=== PATIENT | male | born 1960 | race Caucasian/White ===

== ENCOUNTER 2018-11-18 09:02 | Emergency (ER) | payer OTHER, SELFPAY ==
[2018-11-18] VITALS (7 sets, daily range): BP systolic 125–142; BP diastolic 82–87; PULSE 50–65; RESP 13–18; TEMP 36.6; O2SAT 96–100; BMI 23.6
--- NOTE | 2018-11-18 09:05 | DI.RAD.S_ITS ---
PROCEDURE: XR CHEST 1V INDICATIONS: chest pain TECHNIQUE: One view of the chest was acquired. COMPARISON: None. FINDINGS: Surgical changes and devices: None. Lungs and pleura: Lungs are clear. No pleural effusions or pneumothorax. Mediastinum: Mediastinal contours appear normal. Heart size is normal. Bones and chest wall: No suspicious bony lesions. Overlying soft tissues appear unremarkable. IMPRESSION: No evidence acute pulmonary process. Dictated by: Earnest Flores M.D. on 11/18/2018 at 10:03 Approved by: Earnest Flores M.D. on 11/18/2018 at 10:03
[2018-11-18 09:14] LABS: Add Manual Diff / Slide Review NO; Basophils Absolute Auto 0 /uL (0-100); Basophils Percent Auto 0.7 % (0-2); Eosinophils Absolute Auto 100 /uL (0-450); Hemoglobin 15.8 g/dL (13.5-17.5); Lymphocytes Absolute Auto 1800 /uL (1100-4500); Lymphocytes Percent Auto 26.4 % (25-40); Mean Corpuscular HGB Conc 34.4 % (30-36); Mean Corpuscular Hemoglobin 31.9 PG (26-34); Mean Corpuscular Volume 92.5 fL (80-100); Monocytes Absolute Auto 500 /uL (0-900); Monocytes Percent Auto 7.3 % (3-14); Neutrophils Absolute Auto 4200 /uL (1500-7000); Neutrophils Percent Auto 63.6 % (50-75); Platelet Count 346 X10^3/uL (150-400); Red Blood Cell Count 4.97 X10^6/uL (4.5-5.9); White Blood Cell Count 6.6 X10^3/uL (4.5-11.0)
[2018-11-18 09:20] LABS: INR 0.9 (0.9-1.3); Prothrombin Time 10.1 SECONDS (10.1-12.7)
[2018-11-18 09:23] LABS: PTT Partial Thromboplastin Tim 38 SECONDS (26.4-36.2)
[2018-11-18 09:26] LABS: Alanine Aminotransferase 12 IU/L (21-72); Albumin 4.1 g/dL (3.5-5.0); Albumin Globulin Ratio 1.4 (1.0-2.8); Alkaline Phosphatase 74 U/L (38-126); Aspartate Aminotransferase 28 IU/L (17-59); Bilirubin Total 0.5 mg/dL (0.2-1.3); Blood Urea Nitrogen 15 mg/dL (9-20); Calcium 9.3 mg/dL (8.4-10.2); Carbon Dioxide 31 mmol/L (22-32); Chloride 103 mmol/L (98-107); Creatine Kinase 133 U/L (55-170); Estimated Glomerular Filt Rate > 60.0 mL/min (>60); Globulin 2.9 g/dL (1.7-4.1); Glucose 101 mg/dL (70-100); HEMOLYSIS 29 (0-50); Lipase 82 U/L (23-300); Potassium 4.4 mmol/L (3.4-5.1); Sodium 139 mmol/L (137-145)
[2018-11-18 09:36] LABS: Troponin I < 0.012 ng/mL (0.01-0.034)
[2018-11-18 09:41] LABS: CKMB % Relative Index 1.3 % (1.5-5.0); Creatine Kinase MB 1.73 ng/mL (<2.37)
--- NOTE | 2018-11-18 09:42 | ED.CHESTPAIN ---
HPI - Chest Pain General Chief Complaint: Chest Pain Stated Complaint: Chest Pain Time Seen by Provider: 11/18/18 09:13 Source: patient Mode of arrival: ambulatory Limitations: no limitations History of Present Illness HPI narrative: Patient comes to the emergency department complaining of left-sided chest pain that he 1st noticed this morning when he woke up. Patient states that he felt it in his anterior left chest initially, and it seemed to wax and wane a little. He states that when he got to work, however, he was walking around performing some of his duties at the [employer], and he started to notice an increase in the pain a bit. He states he sat down to do some paperwork, and then began to have pain in his left back and some diaphoresis. Patient denies any nausea or shortness of breath. Patient states he felt an increase in the left-sided chest pain, and asked the medical radiation dosimetrist at the [employer] to come and take his blood pressure. The medical radiation dosimetrist called EMS, who arrived after the patient had taken 2 of his nitroglycerin tablets 5 minutes apart. This had not really change the pain, so they gave him a dose of morphine, which completely took the pain away. Patient states he has a history of an OK several years ago, and thinks that he has been having either MIs or angina leading up to this. He was admitted at [facility], and from patient's report, it seems a diagnostic catheterization was done. 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 He states that he has not seen Cardiology since, and that he has continued to smoke cigarettes. He states he has also been under lot of stress lately with his ill father admitted in [place], and he has not been taking his aspirin. Patient states he has gotten anginal-type pain from time to time over the years since his OK, but that this always resolves easily with nitroglycerin. He states that his nitro is and he wonders if that is why did not seem to work today. Patient states he is completely asymptomatic now after the morphine. No other complaints at this time. No leg swelling or pain. No history of DVT. No cough or respiratory symptoms. No fever. No abdominal pain or other GI symptoms. Patient denies family history of OK, though his father is admitted for dysrhythmia at . Patient is a smoker. No history of hypertension, and patient states that he does take his blood pressure regularly and it is usually 120s to 130s over 70s to 80s. No history of diabetes. Patient is not known to have hyperlipidemia. He does not see a primary doctor regularly. Related Data Home Medications Medication Instructions Recorded Confirmed amoxicillin 500 mg PO TID 11/18/18 11/18/18 Allergies Allergy/AdvReac Type Severity Reaction Status Date / Time ibuprofen Allergy Severe Nausea Verified 11/18/18 12:09 Review of Systems Constitutional Denies chills, Denies fever(s), Denies lethargy and Denies weakness Eyes Denies change in vision, Denies eye discharge, Denies irritation and Denies loss of vision ENT Ears, Nose, Mouth, and Throat: Denies change in voice, Denies neck pain and Denies sore throat Cardiovascular Reports chest pain, Denies irregular heart rhythm, Denies lightheadedness, Denies palpitations, Denies dyspnea, Denies dyspnea on exertion and Denies orthopnea Respiratory Denies cough, Denies dyspnea, Denies dyspnea on exertion and Denies wheezing Gastrointestinal Gastrointestinal: Denies abdominal pain, Denies change in bowel habits, Denies diarrhea, Denies nausea and Denies vomiting Genitourinary Denies hematuria, Denies flank pain, Denies urinary incontinence and Denies urinary urgency Musculoskeletal Denies neck pain Integumentary/Breasts Denies pruritus, Denies erythema, Denies rash and Denies wounds Comments: Diaphoresis Neurologic Denies confusion, Denies loss of vision and Denies weakness Psychiatric Denies anxiety, Denies confusion, Denies depression, Denies homicidal ideation and Denies suicidal ideation Endocrine Denies palpitations Hematologic/Lymphatic Denies easy bruising Allergic/Immunologic Denies wheezing [facility] Medical History Coronary artery disease (Acute) Surgical History H/O cardiac catheterization (Acute) Social History Smoking Status: Current every day smoker Exam Initial Vital Signs Initial Vital Signs: Vital Signs Temperature 97.8 F 11/18/18 09:11 Pulse Rate 65 11/18/18 09:11 Respiratory Rate 13 11/18/18 09:11 Blood Pressure 142/87 H 11/18/18 09:11 Pulse Oximetry 96 11/18/18 09:11 Const General: cooperative and well developed Nutritional Appearance: well nourished Orientation: alert, awake, oriented x3 and not confused [facility] Head: normocephalic and atraumatic Ears: external ears normal Nose: external nose normal and No nasal discharge Face and sinus: face symmetric and No dry mucous membranes Mouth: oral mucosae normal and moist mucous membranes Teeth and gingiva: dentition normal Eyes General: appearance normal, both eyes and all related structures Eyelids: eyelids normal Conjunctivae: conjunctivae normal Sclera: sclerae normal Pupils: PERRL EOM: EOM intact bilaterally Neck Neck: normal visual inspection, trachea midline, No lymphadenopathy, No midline deformity and No JVD Lymphatic: No lymphedema Chest Chest: normal inspection of the chest Resp Effort & Inspection: normal respiratory effort, able to speak in complete sentences, no respiratory distress and no use of accessory muscles Auscultation: clear to auscultation bilaterally, no rales, no rhonchi and no wheezes Cardio Rate: regular rate Rhythm: regular rhythm Heart Sounds: no click, no gallops, no murmurs and no rubs Pulses: normal peripheral pulses GI Inspection: non-distended Palpation: soft, no hepatosplenomegaly, No guarding, No pulsatile mass and No tender Auscultation: normal bowel sounds Back/Spine/Pelvis Back: No CVA tenderness Cervical Spine: cervical ROM normal and No pain with cervical ROM Thoracic/Lumbar Spine: thoracic and lumbar spine normal to inspection Skin General: no rashes or lesions noted, No jaundice and No petechiae Neuro General: alert, oriented x3, gait normal and no focal motor deficits Speech: speech normal Extrem General: full ROM, no clubbing, cyanosis or edema, no pedal edema and no calf tenderness Psych Appearance: well kempt Mental Status: mental status grossly normal Attitude: cooperative Thought Content: normal and suicidality Judgment: judgment good Course Course Narrative: Patient was evaluated by myself in the emergency department upon a arrival. He was found to be well appearing and asymptomatic at the time of my evaluation. However, he did have a number of risk factors for OK, including coronary artery disease, smoking, age, and gender. He was worked up with labs, including cardiac enzymes, and these are found to be negative. I did speak with Dr. Franklin of Cardiology at [facility], and he did agree to accept the patient transfer. As no bed was immediately available, Dr. Franklin did arrange for the patient to come straight in for cardiac catheterization, after which a bed would be found for the patient. Patient was informed of the plan for transfer and cardiology care and was agreeable to the plan. He was beginning to have a mild recurrence of his chest being, and so and into nitroglycerin paste was applied to his chest wall. Orders Ordered: Discontinued Medications Nitroglycerin (Nitro-Dur) 0.4 mg TOP 0700 COLTEN Nitroglycerin (Nitrostat) 0.4 mg SL NOW ONE Stop: 11/18/18 13:48 Last Admin: 11/18/18 13:56 Dose: 0.4 mg Nitroglycerin (Nitro-Bid) 1 inch TOP NOW ONE Stop: 11/18/18 13:59 Last Admin: 11/18/18 13:59 Dose: 1 inch Vital Signs - 8 hr 11/18/18 09:11 Temperature 97.8 F Pulse Rate 65 Respiratory Rate 13 Blood Pressure 142/87 H Pulse Oximetry 96 MDM - Chest Pain Medical Records Data Attestation: I reviewed the patient's medical records. Lab Data Attestation: I reviewed the patient's lab results. Result diagrams: 11/18/18 09:11 11/18/18 09:11 Lab Results 11/18/18 11/18/18 11/18/18 Range/Units 09:11 09:11 09:11 WBC 6.6 (4.5-11.0) X10^3/uL RBC 4.97 (4.5-5.9) X10^6/uL Hgb 15.8 (13.5-17.5) g/dL Hct 46.0 (41-53) % MCV 92.5 (80-100) fL MCH 31.9 (26-34) PG MCHC 34.4 (30-36) % RDW 14.0 (11.6-14.8) % Plt Count 346 (150-400) X10^3/uL Neut % (Auto) 63.6 (50-75) % Lymph % (Auto) 26.4 (25-40) % [place] % (Auto) 7.3 (3-14) % Eos % (Auto) 2.0 (2-4) % Baso % (Auto) 0.7 (0-2) % Neut # (Auto) 4200 (5199-2666) /uL Lymph # (Auto) 1800 (1470-9461) /uL [place] # (Auto) 500 (0-900) /uL Eos # (Auto) 100 (0-450) /uL Baso # (Auto) 0 (0-100) /uL PT 10.1 (10.1-12.7) SECONDS INR 0.9 (0.9-1.3) APTT 38 H (26.4-36.2) SECONDS Sodium 139 (137-145) mmol/L Potassium 4.4 (3.4-5.1) mmol/L Chloride 103 (98-107) mmol/L Carbon Dioxide 31 (22-32) mmol/L BUN 15 (9-20) mg/dL Creatinine 1.00 (0.66-1.25) mg/dL Estimated GFR > 60.0 (>60) mL/min BUN/Creatinine Ratio 15.0 (6-22) Glucose 101 H (70-100) mg/dL Calcium 9.3 (8.4-10.2) mg/dL Total Bilirubin 0.5 (0.2-1.3) mg/dL AST 28 (17-59) IU/L ALT 12 L (21-72) IU/L Alkaline Phosphatase 74 (38-126) U/L Total Creatine Kinase 133 (55-170) U/L CK-MB (CK-2) 1.73 (<2.37) ng/mL CK-MB (CK-2) Rel Index 1.3 L (1.5-5.0) % Troponin I < 0.012 (0.01-0.034) ng/mL Total Protein 7.0 (6.3-8.2) g/dL Albumin 4.1 (3.5-5.0) g/dL Globulin 2.9 (1.7-4.1) g/dL Albumin/Globulin Ratio 1.4 (1.0-2.8) Lipase 82 (23-300) U/L 11/18/18 Range/Units 12:00 WBC (4.5-11.0) X10^3/uL RBC (4.5-5.9) X10^6/uL Hgb (13.5-17.5) g/dL Hct (41-53) % MCV (80-100) fL MCH (26-34) PG MCHC (30-36) % RDW (11.6-14.8) % Plt Count (150-400) X10^3/uL Neut % (Auto) (50-75) % Lymph % (Auto) (25-40) % [place] % (Auto) (3-14) % Eos % (Auto) (2-4) % Baso % (Auto) (0-2) % Neut # (Auto) (0249-5204) /uL Lymph # (Auto) (8629-1653) /uL [place] # (Auto) (0-900) /uL Eos # (Auto) (0-450) /uL Baso # (Auto) (0-100) /uL PT (10.1-12.7) SECONDS INR (0.9-1.3) APTT (26.4-36.2) SECONDS Sodium (137-145) mmol/L Potassium (3.4-5.1) mmol/L Chloride (98-107) mmol/L Carbon Dioxide (22-32) mmol/L BUN (9-20) mg/dL Creatinine (0.66-1.25) mg/dL Estimated GFR (>60) mL/min BUN/Creatinine Ratio (6-22) Glucose (70-100) mg/dL Calcium (8.4-10.2) mg/dL Total Bilirubin (0.2-1.3) mg/dL AST (17-59) IU/L ALT (21-72) IU/L Alkaline Phosphatase (38-126) U/L Total Creatine Kinase (55-170) U/L CK-MB (CK-2) (<2.37) ng/mL CK-MB (CK-2) Rel Index (1.5-5.0) % Troponin I < 0.012 (0.01-0.034) ng/mL Total Protein (6.3-8.2) g/dL Albumin (3.5-5.0) g/dL Globulin (1.7-4.1) g/dL Albumin/Globulin Ratio (1.0-2.8) Lipase (23-300) U/L Imaging Data Chest x-ray: Radiologist's impression: PROCEDURE: XR CHEST 1V INDICATIONS: chest pain TECHNIQUE: One view of the chest was acquired. COMPARISON: None. FINDINGS: Surgical changes and devices: None. Lungs and pleura: Lungs are clear. No pleural effusions or pneumothorax. Mediastinum: Mediastinal contours appear normal. Heart size is normal. Bones and chest wall: No suspicious bony lesions. Overlying soft tissues appear unremarkable. IMPRESSION: No evidence acute pulmonary process. Dictated by: Earnest Flores M.D. on 11/18/2018 at 10:03 Approved by: Earnest Flores M.D. on 11/18/2018 at 10:03 ECG Data Attestation: I personally reviewed and interpreted this ECG as follows: (See below) Discharge Plan Departure Patient Disposition: [facility] Clinical Impression: Coronary artery disease Qualifiers: Coronary Disease-Associated Artery/Lesion type: [place]con artery [place] vs. transplanted heart: rincon heart Associated angina: with unspecified angina Qualified Code(s): I25.119 - Atherosclerotic heart disease of rincon coronary artery with unspecified angina pectoris Chest pain Qualifiers: Chest pain type: precordial pain Qualified Code(s): R07.2 - Precordial pain Discharge Date/Time: 11/18/18 14:34 Interventions: ED Discharge Assessment Last Done: 11/18/18 14:34 Prescriptions: No Action amoxicillin 500 mg capsule 500 mg PO TID RF: 0
--- NOTE | 2018-11-18 09:50 | ED_ITS ---
HPI - Chest Pain General Chief Complaint: Chest Pain Stated Complaint: Chest Pain Time Seen by Provider: 11/18/18 09:13 Source: patient Mode of arrival: ambulatory Limitations: no limitations History of Present Illness HPI narrative: Patient comes to the emergency department complaining of left- sided chest pain that he 1st noticed this morning when he woke up. Patient states that he felt it in his anterior left chest initially, and it seemed to wax and wane a little. He states that when he got to work, however, he was walking around performing some of his duties at the [employer], and he started to notice an increase in the pain a bit. He states he sat down to do some paperwork, and then began to have pain in his left back and some diaphoresis. Patient denies any nausea or shortness of breath. Patient states he felt an increase in the left-sided chest pain, and asked the medical engineer at the [employer] to come and take his blood pressure. The medical engineer called EMS, who arrived after the patient had taken 2 of his nitroglycerin tablets 5 minutes apart. This had not really change the pain, so they gave him a dose of morphine, which completely took the pain away. Patient states he has a history of an SD several years ago, and thinks that he has been having either MIs or angina leading up to this. He was admitted at [facility], and from patient's report, it seems a diagnostic catheterization was done. 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 He states that he has not seen Cardiology since, and that he has continued to smoke cigarettes. He states he has also been under lot of stress lately with his ill father admitted in [place], and he has not been taking his aspirin. Patient states he has gotten anginal-type pain from time to time over the years since his SD, but that this always resolves easily with nitroglycerin. He states that his nitro is and he wonders if that is why did not seem to work today. Patient states he is completely asymptomatic now after the morphine. No other compl aints at this time. No leg swelling or pain. No history of DVT. No cough or respiratory symptoms. No fever. No abdominal pain or other GI symptoms. Patient denies family history of SD, though his father is admitted for dysrhythmia at . Patient is a smoker. No history of hypertension, and p noaz states that he does take his blood pressure regularly and it is usually 120s to 130s over 70s to 80s. No history of diabetes. Patient is not known to have hyperlipidemia. He does not see a primary doctor regularly. Related Data Home Medications Medication Instructions Recorded Confirmed amoxicillin 500 mg PO TID 11/18/18 11/18/18 Allergies Allergy/AdvReac Type Severity Reaction Status Date / Time ibuprofen Allergy Severe Nausea Verified 11/18/18 12:09 Review of Systems Constitutional Denies chills, Denies fever(s), Denies lethargy and Denies weakness Eyes Denies change in vision, Denies eye discharge, Denies irritation and Denies loss of vision ENT Ears, Nose, Mouth, and Throat: Denies change in voice, Denies neck pain and Denies sore throat Cardiovascular Reports chest pain, Denies irregular heart rhythm, Denies lightheadedness, Denies palpitations, Denies dyspnea, Denies dyspnea on exertion and Denies orthopnea Respiratory Denies cough, Denies dyspnea, Denies dyspnea on exertion and Denies wheezing Gastrointestinal Gastrointestinal: Denies abdominal pain, Denies change in bowel habits, Denies diarrhea, Denies nausea and Denies vomiting Genitourinary Denies hematuria, Denies flank pain, Denies urinary incontinence and Denies urinary urgency Musculoskeletal Denies neck pain Integumentary/Breasts Denies pruritus, Denies erythema, Denies rash and Denies wounds Comments: Diaphoresis Neurologic Denies confusion, Denies loss of vision and Denies weakness Psychiatric Denies anxiety, Denies confusion, Denies depression, Denies homicidal ideation and Denies suicidal ideation Endocrine Denies palpitations Hematologic/Lymphatic Denies easy bruising Allergic/Immunologic Denies wheezing [facility] Medical History Coronary artery disease (Acute) Surgical History H/O cardiac catheterization (Acute) Social History Smoking Status: Current every day smoker Exam Initial Vital Signs Initial Vital Signs: Vital Signs Temperature 97.8 F 11/18/18 09:11 Pulse Rate 65 11/18/18 09:11 Respiratory Rate 13 11/18/18 09:11 Blood Pressure 142/87 H 11/18/18 09:11 Pulse Oximetry 96 11/18/18 09:11 Const General: cooperative and well developed Nutritional Appearance: well nourished Orientation: alert, awake, oriented x3 and not confused [facility] Head: normocephalic and atraumatic Ears: external ears normal Nose: external nose normal and No nasal discharge Face and sinus: face symmetric and No dry mucous membranes Mouth: oral mucosae normal and moist mucous membranes Teeth and gingiva: dentition normal Eyes General: appearance normal, both eyes and all related structures Eyelids: eyelids normal Conjunctivae: conjunctivae normal Sclera: sclerae normal Pupils: PERRL EOM: EOM intact bilaterally Neck Neck: normal visual inspection, trachea midline, No lymphadenopathy, No midline deformity and No JVD Lymphatic: No lymphedema Chest Chest: normal inspection of the chest Resp Effort & Inspection: normal respiratory effort, able to speak in complete sentences, no respiratory distress and no use of accessory muscles Auscultation: clear to auscultation bilaterally, no rales, no rhonchi and no wheezes Cardio Rate: regular rate Rhythm: regular rhythm Heart Sounds: no click, no gallops, no murmurs and no rubs Pulses: normal peripheral pulses GI Inspection: non-distended Palpation: soft, no hepatosplenomegaly, No guarding, No pulsatile mass and No tender Auscultation: normal bowel sounds Back/Spine/Pelvis Back: No CVA tenderness Cervical Spine: cervical ROM normal and No pain with cervical ROM Thoracic/Lumbar Spine: thoracic and lumbar spine normal to inspection Skin General: no rashes or lesions noted, No jaundice and No petechiae Neuro General: alert, oriented x3, gait normal and no focal motor deficits Speech: speech normal Extrem General: full ROM, no clubbing, cyanosis or edema, no pedal edema and no calf tenderness Psych Appearance: well kempt Mental Status: mental status grossly normal Attitude: cooperative Thought Content: normal and suicidality Judgment: judgment good Course Course Narrative: Patient was evaluated by myself in the emergency department upon a arrival. He was found to be well appearing and asymptomatic at the time of my evaluation. However, he did have a number of risk factors for SD, including coronary artery disease, smoking, age, and gender. He was worked up with labs, including cardiac enzymes, and these are found to be negative. I did speak with Dr. Franklin of Cardiology at [facility], and he did agree to accept the patient transfer. As no bed was immediately available, Dr. Franklin did arrange for the patient to come straight in for cardiac catheterization, after which a bed would be found for the patient. Patient was informed of the plan for transfer and cardiology care and was agreeable to the plan. He was beginning to have a mild recurrence of his chest being, and so and into nitroglycerin paste was applied to his chest wall. Orders Ordered: Discontinued Medications Nitroglycerin (Nitro-Dur) 0.4 mg TOP 0700 COLTEN Nitroglycerin (Nitrostat) 0.4 mg SL NOW ONE Stop: 11/18/18 13:48 Last Admin: 11/18/18 13:56 Dose: 0.4 mg Nitroglycerin (Nitro-Bid) 1 inch TOP NOW ONE Stop: 11/18/18 13:59 Last Admin: 11/18/18 13:59 Dose: 1 inch Vital Signs - 8 hr 11/18/18 09:11 Temperature 97.8 F Pulse Rate 65 Respiratory Rate 13 Blood Pressure 142/87 H Pulse Oximetry 96 MDM - Chest Pain Medical Records Data Attestation: I reviewed the patient's medical records. Lab Data Attestation: I reviewed the patient's lab results. Result diagrams: 11/18/18 09:11 11/18/18 09:11 Lab Results 11/18/18 11/18/18 11/18/18 Range/Units 09:11 09:11 09:11 WBC 6.6 (4.5-11.0) X10^3/uL RBC 4.97 (4.5-5.9) X10^6/uL Hgb 15.8 (13.5-17.5) g/dL Hct 46.0 (41-53) % MCV 92.5 (80-100) fL MCH 31.9 (26-34) PG MCHC 34.4 (30-36) % RDW 14.0 (11.6-14.8) % Plt Count 346 (150-400) X10^3/uL Neut % (Auto) 63.6 (50-75) % Lymph % (Auto) 26.4 (25-40) % [place] % (Auto) 7.3 (3-14) % Eos % (Auto) 2.0 (2-4) % Baso % (Auto) 0.7 (0-2) % Neut # (Auto) 4200 (2665-8396) /uL Lymph # (Auto) 1800 (6667-1489) /uL [place] # (Auto) 500 (0-900) /uL Eos # (Auto) 100 (0-450) /uL Baso # (Auto) 0 (0-100) /uL PT 10.1 (10.1-12.7) SECONDS INR 0.9 (0.9-1.3) APTT 38 H (26.4-36.2) SECONDS Sodium 139 (137-145) mmol/L Potassium 4.4 (3.4-5.1) mmol/L Chloride 103 (98-107) mmol/L Carbon Dioxide 31 (22-32) mmol/L BUN 15 (9-20) mg/dL Creatinine 1.00 (0.66-1.25) mg/dL Estimated GFR > 60.0 (>60) mL/min BUN/Creatinine Ratio 15.0 (6-22) Glucose 101 H (70-100) mg/dL Calcium 9.3 (8.4-10.2) mg/dL Total Bilirubin 0.5 (0.2-1.3) mg/dL AST 28 (17-59) IU/L ALT 12 L (21-72) IU/L Alkaline Phosphatase 74 (38-126) U/L Total Creatine Kinase 133 (55-170) U/L CK-MB (CK-2) 1.73 (<2.37) ng/mL CK-MB (CK-2) Rel Index 1.3 L (1.5-5.0) % Troponin I < 0.012 (0.01-0.034) ng/mL Total Protein 7.0 (6.3-8.2) g/dL Albumin 4.1 (3.5-5.0) g/dL Globulin 2.9 (1.7-4.1) g/dL Albumin/Globulin Ratio 1.4 (1.0-2.8) Lipase 82 (23-300) U/L 11/18/18 Range/Units 12:00 WBC (4.5-11.0) X10^3/uL RBC (4.5-5.9) X10^6/uL Hgb (13.5-17.5) g/dL Hct (41-53) % MCV (80-100) fL MCH (26-34) PG MCHC (30-36) % RDW (11.6-14.8) % Plt Count (150-400) X10^3/uL Neut % (Auto) (50-75) % Lymph % (Auto) (25-40) % [place] % (Auto) (3-14) % Eos % (Auto) (2-4) % Baso % (Auto) (0-2) % Neut # (Auto) (9981-3340) /uL Lymph # (Auto) (5577-1180) /uL [place] # (Auto) (0-900) /uL Eos # (Auto) (0-450) /uL Baso # (Auto) (0-100) /uL PT (10.1-12.7) SECONDS INR (0.9-1.3) APTT (26.4-36.2) SECONDS Sodium (137-145) mmol/L Potassium (3.4-5.1) mmol/L Chloride (98-107) mmol/L Carbon Dioxide (22-32) mmol/L BUN (9-20) mg/dL Creatinine (0.66-1.25) mg/dL Estimated GFR (>60) mL/min BUN/Creatinine Ratio (6-22) Glucose (70-100) mg/dL Calcium (8.4-10.2) mg/dL Total Bilirubin (0.2-1.3) mg/dL AST (17-59) IU/L ALT (21-72) IU/L Alkaline Phosphatase (38-126) U/L Total Creatine Kinase (55-170) U/L CK-MB (CK-2) (<2.37) ng/mL CK-MB (CK-2) Rel Index (1.5-5.0) % Troponin I < 0.012 (0.01-0.034) ng/mL Total Protein (6.3-8.2) g/dL Albumin (3.5-5.0) g/dL Globulin (1.7-4.1) g/dL Albumin/Globulin Ratio (1.0-2.8) Lipase (23-300) U/L Imaging Data Chest x-ray: Radiologist's impression: PROCEDURE: XR CHEST 1V INDICATIONS: chest pain TECHNIQUE: One view of the chest was acquired. COMPARISON: None. FINDINGS: Surgical changes and devices: None. Lungs and pleura: Lungs are clear. No pleural effusions or pneumothorax. Mediastinum: Mediastinal contours appear normal. Heart size is normal. Bones and chest wall: No suspicious bony lesions. Overlying soft tissues appear unremarkable. IMPRESSION: No evidence acute pulmonary process. Dictated by: Earnest Flores M.D. on 11/18/2018 at 10:03 Approved by: Earnest Flores M.D. on 11/18/2018 at 10:03 ECG Data Attestation: I personally reviewed and interpreted this ECG as follows: (See below) Discharge Plan Departure Patient Disposition: [facility] Clinical Impression: Coronary artery disease Qualifiers: Coronary Disease-Associated Artery/Lesion type: [place] artery [place] vs. transplanted heart: [place] heart Associated angina: with unspecified angina Qualified Code(s): I25.119 - Atherosclerotic heart disease of [place] coronary artery with unspecified angina pectoris Chest pain Qualifiers: Chest pain type: precordial pain Qualified Code(s): R07.2 - Precordial pain Discharge Date/Time: 11/18/18 14:34 Interventions: ED Discharge Assessment Last Done: 11/18/18 14:34 Prescriptions: No Action amoxicillin 500 mg capsule 500 mg PO TID RF: 0
[2018-11-18 12:29] LABS: Troponin I < 0.012 ng/mL (0.01-0.034)
[2018-11-18] MEDS: NITROGLYCERIN 0.4 MG SL TAB SL (13:56)
[2018-11-18] MEDS: NITROGLYCERIN OINT 1 INCH/GM OINT...G. TOP (13:59)
--- NOTE | 2018-11-18 14:07 | PC.NURSE ---
attempted to call report. spoke to someone at [facility] who said she would call me back because she didn't know w a pt was coming.
--- NOTE | 2018-11-18 14:27 | PC.NURSE ---
Attempted to call report 2nd time Rocael Simmons. He said he would call back
== END 2018-11-18 14:34 | disposition short-term general hospital (02) ==
PROVIDERS: Emergency Provider Emergency Medicine
DX: I25.119 Atherosclerotic heart disease of native coronary artery with unspecified angina pectoris (principal); R07.2 Precordial pain; I25.2 Old myocardial infarction; Z72.0 Tobacco use
CPT/HCPCS: 36415; 71045; 80053; 82550; 82553; 83690; 84484; 85025; 85610; 85730; 93005; 93010; 99284; 99285